=== PATIENT | female | born 1945 | race Caucasian/White ===

== ENCOUNTER 2018-05-09 05:48 | Inpatient (IN) ==
[2018-05-09] MEDS ORDERED: Chlorhexidine Gluconate 2% 1 Pack (2 Cloths) TOPICAL ONE (06:17)
[2018-05-09] MEDS ORDERED: Metoprolol Tartrate 25 MG Tablet PO ONE (06:17)
[2018-05-09] MEDS ORDERED: Dexamethasone Inj 20 MG/5 ML Vial IV.PUSH ONE (06:19)
[2018-05-09] MEDS ORDERED: Chlorhexidine 4% Topical 120 APPLIC/120 ML Bottle TOPICAL SCH (06:30)
[2018-05-09] MEDS ORDERED: Vancomycin Inj 1,000 MG in Sodium Chlor 0.9% Inj 250 ML IV.SIG SCH (07:00)
[2018-05-09] MEDS ORDERED: Sodium Chlor 0.9% Inj 500 ML IV.SIG SCH (07:00)
[2018-05-09] MEDS ORDERED: Propofol Inj 500 MG/50 ML Vial ONE (07:05)
[2018-05-09] MEDS ORDERED: Bupivacaine/Dextrose 0.75% Inj 2 ML Ampul ONE (07:20)
[2018-05-09] MEDS ORDERED: Bupivacaine Liposomal PF 1.3% Inj 20 ML Vial ONE (07:29)
[2018-05-09] MEDS ORDERED: SODIUM CHLOR 0.9% IV.SIG SCH ×2 (08:30→11:30)
[2018-05-09] MEDS ORDERED: Sodium Chlor 0.9% Inj 73.07 ML, Ropivacaine 0.5% PF Inj 24.63 ML, Ketorolac Inj 30 MG, ... P-ARTICULR SCH ×5 (08:30)
[2018-05-09] MEDS ORDERED: TRANEXAMIC ACID IV.SIG SCH ×2 (08:30→11:30)
[2018-05-09] MEDS ORDERED: Aluminum/Magnesium/Simethacone Susp 30 ML UDC PO PRN (10:12)
[2018-05-09] MEDS ORDERED: Post-op Orders (for Pharmacy) OTHER STA (10:12)
[2018-05-09] MEDS ORDERED: Bisacodyl 10 MG Supp RECTAL PRN (10:12)
--- NOTE | 2018-05-09 10:12 | P.OP ---
- Preoperative Diagnosis (1) Osteoarthritis of left knee - Postoperative Diagnosis (1) Osteoarthritis of left knee Date of procedure: 05/09/18 Procedure: Left total knee arthroplasty Anesthesia: regional, spinal Surgeon: Anuj Black MD Risk Prevention Engineer: LARY Santoyo The surgical procedure was assisted by my Advanced Registered Nurse Practitioner. My DISTRICT OR DISTRICT OFFICE DIRECTOR presence was necessary throughout this case for the manipulation and positioning of the surgical extremity. My DISTRICT OR DISTRICT OFFICE DIRECTOR was assisting me throughout the duration of this procedure. The skill set of an Advance Registered Nurse Practitioner was medically necessary to complete this procedure. During the surgical case, the civil geotechnical engineer was working at the back table and the Advance Registered Nurse Practitioner was directly assisting me. Operation and Findings: IMPLANTS: DePuy Attune: Patella: size 32. Femur, posterior stabilized size 5 narrow. Tibia, rotating platform size 3. Tibial insert, rotating platform, posterior stabilized size 7 mm thickness. ESTIMATED BLOOD LOSS: 100 cc TOURNIQUET TIME: 38 minutes at 250 mmHg pressure. JUSTIFICATION FOR PROCEDURE: The patient has end-stage osteoarthritis to the knee. There is an attached conservative measures pathway form in the chart that describes the nonoperative measures that were undertaken prior to consideration of surgical management. The patient understood the risks and benefits of surgical management. See my office notes for further details PROCEDURE: The patient was brought back to the operative theatre. Adequate anesthesia was obtained. The patient received intravenous clindamycin and vancomycin. The lower extremity was prepped and draped in the usual sterile fashion.The leg was exsanguinated, the tourniquet was raised. Note that the patient did have some mild hyperextension of the knee preoperatively. A standard anterior incision was performed followed by medial parapatellar arthrotomy was performed. End-stage arthritis was identified. Osteotomy of the patella was performed. We drilled holes for the patella. We trialed the patella component. We placed an intramedullary guide into the distal femur. We ultimately resected 11 mm off of the distal femur in 5 degrees of valgus. The remnants of the ACL and PCL were resected. Osteotomy of the proximal tibia was performed, resecting 5 mm off of the medial side. This was done with 3 degrees of posterior slope using an extramedullary guide. The distal end of the guide was placed in the mid aspect of the ankle. The femur was sized, and four chamfer cuts were completed in 3 of external rotation. We then cut the central box in the distal femur to replace the PCL. We resected the remnants of the menisci and removed osteophytes off of the femur and tibia. We then trialed the knee. We punched the tibia for the keel, and then used standard technique to cement in components. Excess cement was removed. We trialed the knee again and the final polyethylene thickness was chosen to provide extension to 0 degrees ( actually there was about 5 degrees of hyperextension), and flexion of 140 degrees to gravity. The ligaments were appropriately balanced. Lateral release was necessary to obtain excellent patellofemoral tracking. The tourniquet was released and adequate hemostasis was obtained. An intra- articular injection of a ropivacaine cocktail was injected. The posterior knee was inspected for excess cement, which was removed. The final polyethylene was put into position after thorough irrigation. We then closed deep fascia with a #2 Stratafix followed by skin with 2-0 Vicryl followed by Dermabond dressing. Postop plan is to weight-bear as tolerated. DVT prophylaxis will be performed with SCDeddie, SHARAD sanchez, early mobilization, and Lovenox followed by aspirin.
[2018-05-09] MEDS ORDERED: Clindamycin 900 mg/NS Premix 900 MG/50 ML PIGGYBACK IV.SIG SCH (10:15)
[2018-05-09] MEDS: Sod Chloride 0.9% Inj 1,000 ML IV.CONT SCH ×2 (11:00→23:56)
--- NOTE | 2018-05-09 11:51 | XR ---
EXAM DATE: 05/09/2018 10:02 AM EDT AGE/SEX: 72 years / Female INDICATIONS: Post-op left knee. CLINICAL DATA: This is the patient's initial encounter. Patient reports that signs and symptoms have been present for 1 day and indicates a pain score of 0/10. MEDICAL/SURGICAL HISTORY: None. None. COMPARISON: No prior exams available for comparison. FINDINGS: A total knee arthroplasty is identified. Subcutaneous air is present as well as air surrounding the p atella. The tibial and femoral components appear well seated. Bone density normal. CONCLUSION: Postop total knee arthroplasty. Electronically signed by: Danny Hernandez MD 05/09/2018 11:49 AM EDT
[2018-05-09] MEDS ORDERED: *morphine SULFATE 4 MG/ML PERIprocedure ONLY ONE ×2 (12:17→12:42)
--- NOTE | 2018-05-09 12:19 | P.DCO ---
- Physical Therapy Physical Therapy: Gait training, Transfer training, bed to chair Knee: Total knee Left Lower Extremity Weight Bearing: Weight bearing as tolerated Left Lower Extremity Range of Motion: Active ROM - Nursing Nursing: Hesham goodwin Dressing changes: Do not change dressing Additional instructions: First dressing change in the office - Certification Need for Home Health services: I have seen patient Yue Carballo on 05/09/18. My clinical findings support the need for the requested home health care services because: Need for Home Health Services: Limited ability to care for self, High risk of falls Homebound Certification: I certify that my clinical findings support that this patient is homebound because: Homebound Certification: Post-op weakness, Unsteady gait/balance
[2018-05-09] MEDS ORDERED: Morphine Sulfate Inj 2 MG/ML Vial IV.PUSH PRN (13:30)
[2018-05-09] MEDS: Montelukast 10 MG Tablet PO SCH (17:19)
[2018-05-09] MEDS: Clindamycin 900 mg/NS Premix 900 MG/50 ML PIGGYBACK IV.SIG SCH ×2 (17:19→23:53)
[2018-05-09] MEDS: Tolterodine Tartrate LA 4 MG Capsule PO SCH (19:25)
[2018-05-09] MEDS: Multivitamin/Minerals Therapeutic Tablet PO SCH (20:18)
[2018-05-09] MEDS: Senna/Docusate Sodium 8.6/50 MG Tablet PO SCH (20:18)
[2018-05-09] MEDS ORDERED: Zolpidem Tartrate 5 MG Tablet PO PRN (21:00)
--- NOTE | 2018-05-10 07:09 | P.PNOP ---
Subjective Interval history: The patient is resting in bed comfortably in no acute distress. The patient reports little to no pain to the left knee. Physical Exam Vital signs: Vital Signs 05/09/18 07:15 05/09/18 07:17 05/09/18 10:31 Temperature 98.1 F 97.7 F Pulse Rate 76 75 85 Respiratory Rate 20 Blood Pressure 147/67 H Pulse Oximetry 100 98 100 05/09/18 10:32 05/09/18 10:45 05/09/18 11:00 Temperature Pulse Rate 85 86 83 Respiratory Rate 16 17 18 Blood Pressure 111/56 L 119/57 L 120/60 Pulse Oximetry 100 98 97 05/09/18 11:15 05/09/18 11:30 05/09/18 11:35 Temperature Pulse Rate 83 84 Respiratory Rate 18 18 Blood Pressure 120/60 125/60 Pulse Oximetry 96 95 100 05/09/18 11:45 05/09/18 12:00 05/09/18 12:15 Temperature Pulse Rate 83 83 83 Respiratory Rate 20 19 20 Blood Pressure 124/61 125/60 135/63 Pulse Oximetry 95 99 97 05/09/18 16:00 05/09/18 19:18 05/09/18 22:19 Temperature 97.1 F L 97.4 F L Pulse Rate 82 80 Respiratory Rate 16 18 16 Blood Pressure 136/66 106/55 L Pulse Oximetry 95 97 05/09/18 23:05 05/10/18 00:01 05/10/18 02:56 Temperature 97.4 F L Pulse Rate 86 Respiratory Rate 18 18 17 Blood Pressure 102/50 L Pulse Oximetry 96 05/10/18 04:30 Temperature 97.6 F Pulse Rate 85 Respiratory Rate 18 Blood Pressure 96/52 L Pulse Oximetry 96 Intake & Output 05/09/18 05/10/18 05/10/18 18:59 06:59 18:59 Intake Total 1318.43 / 1318.43 290 / 290 Output Total 100 / 100 Balance 1218.43 / 1218.43 290 / 290 Weight 64.3 kg 64.3 kg Intake: IV 1318.43 / 1318.43 50 / 50 Cleocin 900 mg/NS Premix 900 mg 50 / 50 50 / 50 In 50 ml @ 100 mls/hr IV.SIG Q8H [facility] Rx#:[id number] Cleocin Inj 900 MG In NS Inj 106 / 106 100 ML @ 100 mls/hr IV.SIG Q8H [facility] Rx#:[id number] LR 1000 mL Inj 1,000 ML @ 30 700 / 700 mls/hr IV.SIG .Q24H [facility] Rx#: [id number] Cyklokapron Inj 643 MG In NS 212.43 / 212.43 Inj 100 ML @ 200 mls/hr IV.SIG ONCE [facility] Rx#:[id number] Vancomycin Inj 1,000 MG In NS 250 / 250 Inj 250 ML @ 250 mls/hr IV.SIG SALES RESEARCH ANALYST [facility] Rx#:[id number] Oral 240 / 240 Output: Estimated Blood Loss 100 / 100 Other: # Voids 3 Date of Last Bowel Movement 05/08/18 05/08/18 # Bowel Movements 0 Narrative: The patient's dressing is clean, dry, and intact. EHL/TA/G are intact. 2+ pedal pulse. The patient's calf is soft and nontender. Sensation is intact to light touch distally. Results - Labs CBC & Chem 7: 05/10/18 06:21 Laboratory Results - last 24 hr 05/09/18 06:45 Blood Type B Negative Blood Type Recheck Required Antibody Screen Negative - Imaging Impressions Knee X-Ray 05/09/18 10:02 CONCLUSION: Postop total knee arthroplasty. - Procedures Left total knee arthroplasty Assessment and Plan - Problem List (1) Status post total knee replacement, left Code(s): Z96.652 - Presence of left artificial knee joint Status: Acute (2) Primary localized osteoarthritis of left knee Code(s): M17.12 - Unilateral primary osteoarthritis, left knee Status: Acute - Assessment and Plan POD #1: Left total knee arthroplasty 1. Weightbearing as tolerated on left lower extremity. 2. Lovenox followed by aspirin for DVT prophylaxis. 3. Ice as needed for swelling. 4. Stable per ortho for discharge to home health today or Monday. 5. The patient will follow up with Dr. Black and/or LARY Flynn as previously scheduled.
[2018-05-10 07:14] LABS: Hematocrit 34.4 % (35.0-46.0); Hemoglobin 11.5 gm/dL (11.6-15.3)
[2018-05-10] MEDS ORDERED: Dexamethasone Inj 20 MG/5 ML Vial IV.PUSH ONE (08:00)
[2018-05-10] MEDS: Pantoprazole Sodium 20 MG DR Tablet PO SCH (08:23)
[2018-05-10] MEDS ORDERED: Estradiol 1 MG Tablet PO SCH ×2 (09:00→21:00)
[2018-05-10] MEDS: Clindamycin 900 mg/NS Premix 900 MG/50 ML PIGGYBACK IV.SIG SCH (09:50)
[2018-05-10] MEDS: Enoxaparin Inj 40 MG/0.4 ML Syringe SQ SCH (10:01)
[2018-05-10] MEDS: Multivitamin/Minerals Therapeutic Tablet PO SCH ×2 (10:08→20:33)
[2018-05-10] MEDS: hydroCHLOROthiazide 25 MG Tablet PO SCH (10:08)
[2018-05-10] MEDS: Ferrous Sulfate 325 MG Tablet PO SCH (10:08)
[2018-05-10] MEDS: Lisinopril 10 MG Tablet PO SCH (10:08)
[2018-05-10] MEDS: Tolterodine Tartrate LA 4 MG Capsule PO SCH (10:08)
[2018-05-10] MEDS: Senna/Docusate Sodium 8.6/50 MG Tablet PO SCH ×2 (10:08→20:33)
[2018-05-10] MEDS: Sod Chloride 0.9% Inj 1,000 ML IV.CONT SCH (12:33)
[2018-05-10] MEDS: Montelukast 10 MG Tablet PO SCH (19:44)
[2018-05-10] MEDS ORDERED: Tolterodine Tartrate LA 4 MG Capsule PO SCH (21:00)
[2018-05-11] MEDS: Sod Chloride 0.9% Inj 1,000 ML IV.CONT SCH (05:37)
[2018-05-11 08:11] LABS: Hematocrit 33.4 % (35.0-46.0); Hemoglobin 11.2 gm/dL (11.6-15.3)
[2018-05-11] MEDS: Multivitamin/Minerals Therapeutic Tablet PO SCH (09:42)
[2018-05-11] MEDS: Ferrous Sulfate 325 MG Tablet PO SCH (09:42)
[2018-05-11] MEDS: Enoxaparin Inj 40 MG/0.4 ML Syringe SQ SCH (09:42)
[2018-05-11] MEDS: Lisinopril 10 MG Tablet PO SCH (09:42)
[2018-05-11] MEDS: hydroCHLOROthiazide 25 MG Tablet PO SCH (09:42)
[2018-05-11] MEDS: Pantoprazole Sodium 20 MG DR Tablet PO SCH (09:42)
[2018-05-11] MEDS: Senna/Docusate Sodium 8.6/50 MG Tablet PO SCH (09:50)
[2018-05-11 10:01] VITALS: BP 133/68; PULSE 79; RESP 12; TEMP 98.2; O2SAT 98
--- NOTE | 2018-05-11 11:16 | P.PNOP ---
Subjective Interval history: The patient is out of bed ambulating the hallway with physical therapy. The patient states she does have some increased discomfort today to the left knee. The patient states she is ready for discharge home with home health.. Physical Exam Vital signs: Vital Signs 05/10/18 12:00 05/10/18 16:00 05/10/18 20:00 Temperature 97.7 F 98.0 F 97.8 F Pulse Rate 77 79 73 Respiratory Rate 18 18 17 Blood Pressure 110/56 L 130/66 136/63 Pulse Oximetry 98 98 94 L 05/11/18 00:00 05/11/18 08:00 Temperature 97.7 F 98.2 F Pulse Rate 81 79 Respiratory Rate 18 12 Blood Pressure 122/58 L 133/68 Pulse Oximetry 95 98 Intake & Output 05/10/18 05/11/18 05/11/18 18:59 06:59 18:59 Intake Total 1959 240 / 240 Balance 1959 240 / 240 Weight 64.1 kg Intake: IV 1000 / 1000 NS Inj 1,000 ML @ 80 mls/hr IV. 1000 / 1000 CONT .[id number] [facility] Rx#:[id number] Oral 960 / 960 240 / 240 Other: # Voids 5 2 Date of Last Bowel Movement 05/08/18 05/08/18 Narrative: The patient's dressing is clean, dry, and intact. EHL/TA/G are intact. 2+ pedal pulse. The patient's calf is soft and nontender. Sensation is intact to light touch distally. Results - Labs CBC & Chem 7: 05/11/18 07:13 Laboratory Results - last 24 hr 05/11/18 07:13 Hgb 11.2 L Hct 33.4 L - Procedures Left total knee arthroplasty Assessment and Plan - Problem List (1) Status post total knee replacement, left Code(s): Z96.652 - Presence of left artificial knee joint Status: Acute (2) Primary localized osteoarthritis of left knee Code(s): M17.12 - Unilateral primary osteoarthritis, left knee Status: Acute - Assessment and Plan POD #2: Left total knee arthroplasty 1. Weightbearing as tolerated on left lower extremity. 2. Lovenox followed by aspirin for DVT prophylaxis. 3. Ice as needed for swelling. 4. Stable per ortho for discharge to home health today. 5. The patient will follow up with Dr. Black and/or LARY Flynn as previously scheduled.
--- NOTE | 2018-05-11 11:18 | P.DS ---
Date of admission: 05/09/18 05:48 Primary care physician: Nel Borden Attending physician on discharge: Anuj Black Anticipated date of discharge: 05/11/18 Brief History from admission: The patient was admitted to the hospital for severe osteoarthritis of the left knee to have a left total knee arthroplasty. DS: Diagnosis - Discharge Diagnosis (1) Status post total knee replacement, left Status: Acute (2) Primary localized osteoarthritis of left knee Status: Acute DS: Summary Hospital Course: The patient was admitted to the hospital for severe osteoarthritis of the left knee to have a left total knee arthroplasty. The patient's surgery went well with no complication. The patient is on a [regular] diet. The patient's DVT prophylaxis includes use of [Lovenox followed by aspirin]. The patient is weightbearing as tolerated. The patient was discharged [home with home health] and will follow up in the office with Dr. Black and/or LARY Flynn as previously scheduled. - Time Spent with Patient Total time spent providing and/or coordinating discharge services: Greater than 30 minutes - Quality: VTE Deep Vein Thrombosis/Pulmonary Embolism Present on Admission: No Exam Vital signs: Vital Signs 05/10/18 12:00 05/10/18 16:00 05/10/18 20:00 Temperature 97.7 F 98.0 F 97.8 F Pulse Rate 77 79 73 Respiratory Rate 18 18 17 Blood Pressure 110/56 L 130/66 136/63 Pulse Oximetry 98 98 94 L 05/11/18 00:00 05/11/18 08:00 Temperature 97.7 F 98.2 F Pulse Rate 81 79 Respiratory Rate 18 12 Blood Pressure 122/58 L 133/68 Pulse Oximetry 95 98 Intake & Output 05/10/18 05/11/18 05/11/18 18:59 06:59 18:59 Intake Total 1959 240 / 240 Balance 1959 240 / 240 Weight 64.1 kg Intake: IV 1000 / 1000 NS Inj 1,000 ML @ 80 mls/hr IV. 1000 / 1000 CONT .[id number] [facility] Rx#:[id number] Oral 960 / 960 240 / 240 Other: # Voids 5 2 Date of Last Bowel Movement 05/08/18 05/08/18 Narrative: The patient's dressing is clean, dry, and intact. EHL/TA/G are intact. 2+ pedal pulse. The patient's calf is soft and nontender. Sensation is intact to light touch distally. Results Procedures completed during hospitalization: Left total knee arthroplasty Labs on day of discharge: Labs from last 24 hours 05/11/18 07:13 Hgb 11.2 L Hct 33.4 L - Impressions ITS Impressions Knee X-Ray 05/09/18 10:02 CONCLUSION: Postop total knee arthroplasty. Discharge Plan - Discharge Disposition Patient Disposition: W/Home Health Service - Discharge Condition Condition: Stable - Discharge Order Discharge Orders: Discharge Order (Routine); Ordered 05/09/18 Ordered By: Cleveland Edwards - Discharge Details Anticipated Discharge Date: 05/10/18 - Physicians Team Primary Care Provider: Nel Borden Attending Provider: Anuj Black - Rxs /Orders / Referrals /Forms Prescriptions: Continue bacillus coagulans-inulin [Probiotic with Prebiotic] 1 billion-250 cell-mg Capsule 1 cap PO DAILY cholecalciferol (vitamin D3) [Vitamin D3] 1,000 unit Capsule 1,000 unit PO DAILY estradiol 1 mg Tablet 1 mg PO DAILY ferrous sulfate [iron] 325 mg (65 mg iron) Tablet 325 mg PO DAILY fosinopril 10 mg Tablet 10 mg PO DAILY hydrochlorothiazide 25 mg Tablet 25 mg PO DAILY lutein 20 mg Tablet 20 mg PO DAILY montelukast 10 mg Tablet 10 mg PO QPM omeprazole 20 mg Tablet,Delayed Release (Dr/Ec) 20 mg PO DAILY trospium 60 mg Capsule,Extended Release 24hr 60 mg PO QAM vit A and D3 in cod liver oil [cod liver oil] 1,250-135 unit Capsule 1 cap PO DAILY vit B comp with C-calcium carb [B-Complex] 300 mg-150 mg calcium Tablet 1 tab PO DAILY Discontinued omega 1-yhz-vhe-fish oil [Biloxi-3] 350 mg-235 mg- 90 mg-597 mg Capsule, Delayed Release(Dr/Ec) 1 cap PO DAILY vitamin E 200 unit Capsule 200 unit PO DAILY Ambulatory Orders / Order Sets / DME: Adjustable Commode 3-in-1 (1 each) (Routine) Location: Determined by Patient Ordered By: Cleveland Edwards CPM - Continuous Passive Motion Machine (1 each) (Routine) Location: Determined by Patient Ordered By: Cleveland Edwards Walker With Front Wheels (1 each) (Routine) Location: Determined by Patient Ordered By: Cleveland Edwards Referrals: Nel Borden ARNP [Primary Care Provider] - See Instructions Anuj Black MD [Physician] - See Instructions (F/U in the office as previously scheduled with Dr. Black or Jesse Edawrds, OFFSET PRINTER.) - Discharge Instructions Patient Printed Instructions: How to Choose and Use a Walker (GEN), SHARAD Hose ( DC), Continuous Passive Motion Machine (DC), Knee Replacement (DC) Additional Instructions: Weight bearing as tolerated Keep dressing clean, dry, and intact Do not change dressing Take medication as prescribed Follow up with MD as instructed - Post Discharge Care Plan Care Plan Goals: Discharge Care Plan Goals for Total Knee Replacement You have undergone knee replacement surgery. Your doctor replaced your painful joint with an artificial joint to relieve pain and restore movement. Here are some goals to help you heal well. Directions to Meet your Goals: 1. Activity & Exercises: * Take pain medicine as directed by your doctor. * Sit in chairs with arms. The arms make it easier for you to stand up or sit down. * Dont sit for more than 30 to 45 minutes at one time. * Nap if you are tired, but dont stay in bed all day. * Sleep with a pillow under your ankle, not your knee. Be sure to change the position of your leg during the night. * Wear the support stockings you were given in the hospital as directed by your surgeon. 2. Prevent Falls/Injury: The parra to successful recovery is movement with walking and exercising your knee as directed by your doctor. * Arrange your household to keep the items you need handy. Keep everything else out of the way. * Remove items that may cause you to fall, such as throw rugs and electrical cords. * Use nonslip bath mats, grab bars, an elevated toilet seat, and a shower chair in your bathroom * Sit on a shower stool or chair when you shower to keep from falling. * Until your balance, flexibility, and strength improve, use a cane, crutches, a walker, handrails, or someone to help you. * Keep your hands free by using a backpack, mandie pack, apron, or pockets to carry things * Walk up and down stairs with support. Try one step at a time. Use the railing if possible. * Dont drive until your doctor says its OK. * Dont drive while you are taking opioid pain medicine. 3. Precautions: * Prevent infection. Any infection will need to be treated immediately. Call your doctor right away if you think you might have an infection. * Tell your dentist that you have an artificial joint and take antibiotics as prescribed before any dental work. * Tell all your healthcare providers about your artificial joint before any medical procedure. * Maintain a healthy weight. Get help to lose any extra pounds. Added body weight puts stress on the knee. * Your medications may include blood-thinning medicine to prevent blood clots or antibiotics to prevent infection-prevent any falls or cuts 4. Incision Care: * Prevent infection by washing your hands often. If an infection occurs, it will need to be treated right away. * Call your doctor right away if you think you may have an infection. Symptoms include a fever or an incision that leaks white, green, or yellow fluid. * Don't soak your incision in water until your doctor says its OK. This means no hot tubs, bathtubs, or swimming pools. * Follow your doctor's instructions for changing the dressing. * Dont rub the incision, or apply creams or lotions to it. * If you notice any redness or drainage around the bandage site, contact your surgeon's office immediately. 5. Follow-Up: Do Not miss your follow-up appointment. Keep up with all your appointments and yearly check ups When to call your doctor: Call your doctor right away if you have: Fever of 100.4F (38C) or higher, or as directed by your doctor Shaking chills Stiffness, or inability to move the knee Increased swelling in your leg Increased redness, tenderness, or swelling in or around the knee incision Drainage from the knee incision Increased knee pain Call 911: Call 911 right away if you have: Chest pain Shortness of breath Any pain or tenderness in your calf
== END 2018-05-11 13:42 | disposition home health service (06) ==
LOC: HSDI 05:48 → N06 13:02
PROVIDERS: ADMIT Orthopaedic Surgery; ATTEND Orthopaedic Surgery